=== PATIENT | female | born 1940 | race Caucasian/White ===

== ENCOUNTER → 2016-08-12 | Outpatient (CLI) | payer OTHER, MEDICARE ==
[~2016-08-12] MED LIST: ACET-1487 PO; ADVIN25050 INH; ALBUAER19 INH; ANT25 PO; ASPI81TA25 PO; CALC8.5C PO; COENCAP9; FLUT0.0529 NAE; GLGKIT; HYDR25TA4 PO; IBUP-1105 PO; INSPMPHMLG; LEVO112T2 PO; LOSA50TA6 PO; MULTTAB PO; OMEP20CA59 PO; VITA100C4 PO; [UNRECOGNIZED DRUG - OTHER] PO
[2016-08-12 13:53] LABS: ALT/SGPT 25 U/L (12-78); BLOOD UREA NITROGEN 18 mg/dl (7-18); BUN/CREATININE RATIO 21.2 (10-20); CALCIUM 8.8 mg/dl (8.5-10.1); CARBON DIOXIDE 30 mmol/L (21-32); CHLORIDE 103 mmol/L (98-107); CREATININE 0.84 mg/dl (0.60-1.20); GLUCOSE 289 mg/dl (70-99); POTASSIUM 3.8 mmol/L (3.5-5.1); SODIUM 140 mmol/L (136-145); TRIGLYCERIDES 128 mg/dl (0-150); VERY LOW DENSITY LIPOPROT CALC 26 mg/dl
[2016-08-12 13:54] LABS: ESTIMATED AVERAGE GLUCOSE 226 mg/dl; HA1C FLAG Normal (Normal)
[2016-08-12 14:03] LABS: ALB/GLOB RATIO 1.2 (0.9-2); ALKALINE PHOSPHATASE 114 U/L (45-117); AST/SGOT 17 U/L (15-37); CHOLESTEROL 163 mg/dl (0-200); CHOLESTEROL/HDL RATIO 3.3; HDL CHOLESTEROL 49 mg/dl; LDL CHOLESTEROL CALCULATED 88 mg/dl; THYROID STIMULATING HORMONE 0.025 uIu/ml (0.300-4.500)
--- NOTE | 2016-08-18 11:36 | CODING QUERY MEDICAL NECESSITY ---
SUPPORTING DIAGNOSIS NEEDED A supporting diagnosis is required for the test/procedure performed on this patient in order for us to be reimbursed by the patient's insurance. Please provide a supporting diagnosis for the following test/procedure listed below next to the test name along with your signature. *If there is no additional diagnosis for this patient that would support the following test/procedure please document that below next to the test/procedure. Test(s)/Procedure(s) that require a supporting diagnosis: DOS 08/12 * Hba1c DIAGNOSIS: Provider Signature: Date: Thank you Tati Ordonez Health Information Management Once completed, please kindly fax back to [phone] For questions please call [phone]
== END | disposition home or self-care (01) ==
LOC: C.LABMFLN 08:17
PROVIDERS: ATTEND Nurse Practitioner Adult Health
DX: G47.62 Sleep related leg cramps (principal); E78.5 Hyperlipidemia, unspecified; I10 Essential (primary) hypertension; R74.8 Abnormal levels of other serum enzymes; R53.83 Other fatigue; E10.65 Type 1 diabetes mellitus with hyperglycemia

== ENCOUNTER → 2016-11-28 | Outpatient (CLI) | payer OTHER, MEDICARE ==
[2016-11-28 17:48] LABS: THYROID STIMULATING HORMONE 0.111 uIu/ml (0.300-4.500)
[2016-11-29 06:46] LABS: ESTIMATED AVERAGE GLUCOSE 174 mg/dl; HA1C FLAG Normal (Normal)
== END | disposition home or self-care (01) ==
LOC: C.LAB1850 15:45
PROVIDERS: ATTEND Nurse Practitioner Adult Health
DX: E10.65 Type 1 diabetes mellitus with hyperglycemia (principal); E89.0 Postprocedural hypothyroidism; F32.9 Major depressive disorder, single episode, unspecified

== ENCOUNTER → 2017-02-27 | Outpatient (CLI) | payer OTHER, MEDICARE ==
[2017-02-27 13:38] LABS: ESTIMATED AVERAGE GLUCOSE 206 mg/dl; HA1C FLAG Normal (Normal)
[2017-02-27 13:44] LABS: THYROID STIMULATING HORMONE 0.667 uIu/ml (0.300-4.500)
[2017-02-27 13:55] LABS: RATIO 6.5 mcg/mg (0-30.0)
== END | disposition home or self-care (01) ==
LOC: C.LABMFLN 09:42
PROVIDERS: ATTEND Nurse Practitioner Adult Health
DX: E10.65 Type 1 diabetes mellitus with hyperglycemia (principal); E89.0 Postprocedural hypothyroidism; E05.00 Thyrotoxicosis with diffuse goiter without thyrotoxic crisis or storm; I10 Essential (primary) hypertension

== ENCOUNTER → 2017-05-15 | Outpatient (CLI) | payer OTHER, MEDICARE | END | disposition home or self-care (01) | LOC: C.LABMFLN 10:48 | PROVIDERS: ATTEND Internal Medicine Endocrinology, Diabetes & Metabolism | DX: E89.0 Postprocedural hypothyroidism (principal) ==

== ENCOUNTER → 2017-05-29 | Outpatient (CLI) | payer OTHER, MEDICARE ==
[2017-05-29 12:58] LABS: BASO % 0.1 %; BASO ABS # 0.01 K/uL (0-0.2); COMPLETE YES; EOS % 3.4 %; HEMATOCRIT 39.2 % (37-47); IG% 0.1 %; LYMPH % 27.8 %; LYMPH ABS # 2.15 K/uL (1.2-3.4); MEAN CELL VOLUME 93.1 fL (80-100); MEAN CORPUSCULAR HEMOGLOBIN 31.6 pg (25-34); MEAN CORPUSCULAR HGB CONC 33.9 g/dl (32-36); MEAN PLATELET VOLUME 10.4 fL (7.4-10.4); MONO % 8.9 %; NEUT % 59.7 %; PLATELET COUNT 238 K/uL (130-400); RED BLOOD COUNT 4.21 M/uL (4.2-5.4); WHITE BLOOD COUNT 7.72 K/uL (4.8-10.8)
[2017-05-29 13:26] LABS: ALT/SGPT 20 U/L (12-78); AST/SGOT 14 U/L (15-37); BLOOD UREA NITROGEN 12 mg/dl (7-18); BUN/CREATININE RATIO 16.5 (10-20); CARBON DIOXIDE 29 mmol/L (21-32); CHLORIDE 98 mmol/L (98-107); GLUCOSE 169 mg/dl (70-99); MAGNESIUM 1.8 mg/dl (1.8-2.4); POTASSIUM 3.6 mmol/L (3.5-5.1); SODIUM 134 mmol/L (136-145)
[2017-05-29 13:30] LABS: ALB/GLOB RATIO 1.1 (0.9-2); ALKALINE PHOSPHATASE 116 U/L (45-117); CHOLESTEROL 130 mg/dl (0-200); CHOLESTEROL/HDL RATIO 2.8; HDL CHOLESTEROL 47 mg/dl; LDL CHOLESTEROL CALCULATED 71 mg/dl; TRIGLYCERIDES 59 mg/dl (0-150); VERY LOW DENSITY LIPOPROT CALC 12 mg/dl
[2017-05-29 13:33] LABS: ESTIMATED AVERAGE GLUCOSE 189 mg/dl; HA1C FLAG Normal (Normal)
== END | disposition home or self-care (01) ==
LOC: C.LABMFLN 10:38
PROVIDERS: ATTEND Nurse Practitioner Adult Health
DX: I10 Essential (primary) hypertension (principal); M54.9 Dorsalgia, unspecified; R19.7 Diarrhea, unspecified; E10.9 Type 1 diabetes mellitus without complications; E78.5 Hyperlipidemia, unspecified; Z51.81 Encounter for therapeutic drug level monitoring; Z79.82 Long term (current) use of aspirin; Z79.899 Other long term (current) drug therapy; D64.9 Anemia, unspecified

== ENCOUNTER 2019-05-30 09:47 | Observation (INO) ==
[2019-05-30] MEDS ORDERED: ASPIRIN 325 MG ECTAB PO ONE (10:32)
--- NOTE | 2019-05-30 10:57 | History & Physical Bridge Note ---
Date of Service May 30, 2019 History & Physical Bridge Note I have examined the patient, reviewed the History & Physical and in the interval since the performance of the History & Physical I have noted the following changes of clinical significance: no changes noted
--- NOTE | 2019-05-30 10:58 | Pre Anesthesia Assessment ---
Date of Service May 30, 2019 Pre Sedation Assessment Vital Signs Temp Pulse Resp BP Pulse Ox 05/30/19 10:25 37.0 C 61 18 152/66 H 93 Cardiovascular + regular rate Respiratory normal respiratory effort, lungs clear to auscultation Pre-Sedation Airway Assessment Smoking Status: Never smoker Hx Sleep Apnea: No Short, Thick Neck: No Thyromental Distance: > or= 3.5 Finger Breadths Oral Cavity: + WNL Mallampati Class: III ASA: ASA3 NPO Status Date of Last Intake of Fluids: 05/29/19 Time of Last Intake of Fluids: 18:00 Date of Last Intake of Solid Food: 05/29/19 Time of Last Intake of Solid Foods: 18:00 Procedure Planning Contraindications for Sedation: none Current Medications Reviewed: Yes Notes The planned sedation has been discussed with the patient. Informed Consent was obtained. I have identified the patient, determined the appropriateness of sedation and have assessed the patient immediately prior to the procedure. All medicine(s) and interventions are by my order.
[2019-05-30] MEDS ORDERED: HEPARIN (PORCINE) 1000 UNIT/ML 10 ML (CATH LAB USE ONLY) ONE (13:28)
[2019-05-30] MEDS ORDERED: NiCARDipine HCL INJ 2.5 MG/ML 10 ML AMP ONE (13:28)
[2019-05-30] MEDS ORDERED: fentaNYL citrate 100 MCG/2 ML VIAL ONE (13:28)
[2019-05-30] MEDS ORDERED: NITROGLYCERIN/D5W 100MCG/ML 20ML SYR ONE (13:29)
[2019-05-30] MEDS ORDERED: MIDAZOLAM HCL 1 MG/ML 2ML VIAL ONE (13:29)
[2019-05-30] MEDS ORDERED: NITROGLYCERIN SL 0.4 MG/TAB TAB ONE (14:54)
[2019-05-30] MEDS ORDERED: FUROSEMIDE 40 MG in SYRINGE 0 ML IV ONE (16:06)
[2019-05-30] MEDS ORDERED: NITROGLYCERIN SL 0.4 MG/TAB TAB SL PRN (16:06)
[2019-05-30] MEDS ORDERED: ACETAMINOPHEN 325 MG TAB PO PRN ×2 (16:06→18:21)
[2019-05-30] MEDS ORDERED: ONDANSETRON INJ 2 MG/ML 2 ML VIAL IV PRN ×2 (16:06→18:21)
--- NOTE | 2019-05-30 16:16 | Cardiac Catheterization ---
[facility] Data: Surveillance Dual Rate Officer Cardiac Status Clinical evaluation leading to the procedure CAD Presenation: No Sxs, No angina Anginal Classification: No Symptoms Heart Failure: NYHA Class: CCS III Cardiogenic Shock within 24 Hours: No Cardiac Arrest within 24 Hours: No Imaging Studies Past 6 Months: Yes Stress Studies Past 6 Months: No Standard Exercise Test: No Stress Echocardiogram: No Stress Testing w/SPECT MPI: No Cardiac CTA: No Coronary Anatomy Dominant: Right Left Ventricular Angiography EF (%): n/a Diagnostic Physicians Name: Parmjit Sandoval MD Status: Elective Closure Device Percutaneous Entry Location: Radial Closure Device: Radial Band Recommendations: CABG Cardiac Cath Procedure Full Procedure Date May 30, 2019 Pre-Procedure Diagnosis Pre-Procedure Diagnosis: Cardiomyopathy AUC Score AUC Score: 7 Post-Procedure Diagnosis Post-Procedure Diagnosis: Severe CAD and Elevated Intracardiac Pressures Procedure(s) Performed Procedure(s) Performed: Coronary Angiography, Left Heart Cath and Right Heart Cath Design Engineer Products Parmjti Sandoval MD Rouge Presser(s) Margie Agrawal Estimated Blood Loss Estimated Blood Loss: < 30 ml Medication(s) Medication(s): Fentanyl, Heparin, Lidocaine 1%, Nicardipine, Nitroglycerin and Versed Summary of Findings Procedures: 1. Coronary angiography 2. Left heart catheterization 3. Right heart catheterization 4. Moderate sedation Coronary angiography: 1. Left main coronary artery: The LMCA is short in duration. No significant CAD within the LMCA. 2. Left anterior descending: LAD is a large-caliber vessel. Early mid LAD 100% stenosis. LAD gives rise to a large D1 and a large caliber D2. Proximal D2 90%. SHARON-3 flow throughout the diagonal. LAD partially fills via right to left collaterals. 3. Circumflex: The circumflex is a large-caliber vessel. Proximal circumflex 50 - 70%. Small caliber OM1. Large caliber OM 2 with 70 - 80% stenosis at bifurcation site. SHARON-3 flow throughout the circumflex system. 4. Right coronary: The RCA is large and dominant. Proximal RCA 30%. Mid RCA 40 - 50%. Distal RCA 50 - 60%. SHARON-[address] and PDA without significant CAD. Right to left collaterals were noted. Left heart catheterization: 1. Left ventriculography was not performed. 2. No aortic stenosis. Peak to peak gradient across the aortic valve is 0. 3. Elevated LVEDP; 22 mmHg. Right heart catheterization: 1. Elevated pulmonary capillary wedge pressure. PCWP V wave 40 with a mean of 20 mmHg. 2. Pulmonary hypertension. PA pressure 55/10 with a mean of 25 mmHg. 3. RV pressure 60/0 with RVEDP of 8 mmHg. 4. Right atrial pressure: A wave 10; V wave 9; mean 4 mmHg. 5. Cardiac output via thermodilution was 5.3 L/min with a cardiac index of 3.03 L/min/m. 6. PVR 0.94 Wood units. Moderate sedation: 1. Sedation start time 2:06 PM 2. Sedation end time 3:01 PM Procedural notes: 1. J-wire was unable to be passed beyond the right radial artery. Glidewire was successful. There was significant tortuosity within the right subclavian, however coronary angiography was able to be completed via the right radial artery with 5 Spanish JR4 and JL 3.5 diagnostic catheters. Impression: 1. Severe CAD including early mid LAD 100%, large D2, and large OM1. Right to left collaterals. 2. Moderate to severe CAD involving proximal circumflex and distal RCA. 3. Otherwise, nonobstructive disease. 4. Elevated filling pressures. 5. Pulmonary hypertension, likely due to left heart failure. 6. No aortic stenosis. Plan: 1. Referral to CT surgery at [facility] for discussion of possible revascularization. 2. Optimize medical therapy. 3. Loop diuretic. Hemodynamics Rest Ao:: 178/64 Final Ao: 168/71 LV: 180/12/22 Recommendations Recommendations: CABG Specimens Specimens: None Radiation Exposure (mGy) 1079 mGy. Fluoro time 17.4 min. Contrast (mls) 65 ml Procedural Complication(s) None Disposition Surveillance Dual Rate Officer Holding/Recovery I attest to the content of the Intraoperative Record and any orders documented therein. Any exceptions are noted below. Doist Card Cath Procedure Codes Cardiac Catheterization Procedure 1: Cardiovascular Cath Procedures: 53380 Coronaries & LHC (+/-LV) & RHC Moderate Sedation Procedure 1: Sedation/Anesthesia: 78368 Mod Sedation by the same physician;Init15 Min Child Age 5 & Up Procedure 2: Sedation/Anesthesia: 89445 Mod Sedation by the same physician; Ea [id number] Minutes Procedure 3: Sedation/Anesthesia: 66626 Mod Sedation by the same physician; Ea [id number] Minutes Procedure 4: Sedation/Anesthesia: 75341 Mod Sedation by the same physician; Ea [id number] Minutes PG Care Time/CCT Total # of Minutes Spent Total Time Spent with Patient: Total time spent is greater than 50% in coordination of care (as documented) at patient's floor/unit and/or counseling patient:
[2019-05-30] MEDS ORDERED: FUROSEMIDE 40 MG/4 ML VIAL IV ONE (16:33)
--- NOTE | 2019-05-30 17:13 | Post Anesthesia Assessment ---
Date of Service May 30, 2019 Post Sedation Assessment Vital Signs Temp Pulse Resp BP Pulse Ox 05/30/19 17:00 69 20 154/72 H 91 05/30/19 16:45 62 20 159/80 H 94 05/30/19 16:30 60 20 163/82 H 92 05/30/19 16:15 60 20 138/80 92 05/30/19 16:00 60 20 152/78 H 92 05/30/19 15:45 60 20 143/70 H 93 05/30/19 15:30 62 20 153/90 H 92 05/30/19 10:25 37.0 C 61 18 152/66 H 93 Recovery Score Activity: Moves 4 extremities Respiration: Deep Breath/Cough Circulation: +/-20% PreAnes Value Consciousness: Fully Awake Oxygen Saturation: > 92% On Room Air Post Anesthesia Score: 10 Discharge Sedation Level of Care: Fast Track Phase II Post Sedation Plan On clinical assessment, the patient appears to have tolerated the sedation without complications. Patient is recovering as anticipated. Patient will continue to be monitored by nursing and may be discharged when sedation discharge criteria are met per below protocol. Upon Completions of procedure up to 15 minutes continue every 5 minute vital signs and the P.A.R. score; then discharge to a Phase I or Fast Track to Phase II per the following guidelines: * Discharge Patient to appropriate Phase II area if PAR is 8 or greater or return to pre- procedure baseline. The post - procedure orders will be as directed. * If PAR score is less than 8 or not return to pre-procedure baseline then patient will follow Phase I monitoring till PAR is reached for Phase II. The Phase I may be done in procedure room or may call to secure a Phase I area. * If naloxone or flumazenil are used for reversal, hold in Phase I for continued monitoring from when last reversal dose was given for a minimum of 60 minutes or longer pending the nurse and/or physician discretion of patient condition before discharge to Phase II. Please call the Sedation Physician to re-evaluate and complete post-note for discharge to Phase II area. Do NOT discharge from procedure sedation or Phase 1 until post- sedation evaluation note is complete by procedure /sedation MD Sedation Discharge Instructions to be given to the patient at discharge to home.
--- NOTE | 2019-05-30 17:51 | Cardiology Progress Note ---
Date of Service May 30, 2019 Subjective Patient was given 40 mg of IV Lasix after filling pressures were noted to be elevated. Discharge paperwork has been completed. Lasix 40 mg once daily was prescribed. Nursing staff has since notified me that her oxygen saturation has been low with any type of exertion, such as using the restroom. I presented to the bedside. Her oxygen saturation in bed was 88-92%. She is not short of breath while in bed. Her oxygen saturation was in the mid 80s with exertion according nursing report. Her daughter was at the bedside and stated that 1 year ago they checked her oxygen saturations at home and her mother's was low at that time as well. She likely has some degree of chronic hypoxia as she is not symptomatic while in bed. Given the fact that she is desaturating however with exertion and short of breath with exertion just walking across the room, recomm end that she remain hospitalized overnight and possibly receive more intravenous diuretic therapy in the morning if appropriate at that time. This was discussed with admitting physician for the hospitalist service, Dr. Delvalle. He was agreeable to admit her to the hospitalist service for further evaluation. Patient was agreeable to stay. Her daughter was at the bedside. Results & Data Vital Signs (Past 12 Hours) Vital Signs Temp Pulse Resp BP Pulse Ox 05/30/19 17:30 59 L 20 146/62 H 92 05/30/19 17:15 72 20 185/92 H 91 05/30/19 17:00 69 20 154/72 H 91 05/30/19 16:45 62 20 159/80 H 94 05/30/19 16:30 60 20 163/82 H 92 05/30/19 16:15 60 20 138/80 92 05/30/19 16:00 60 20 152/78 H 92 05/30/19 15:45 60 20 143/70 H 93 05/30/19 15:30 62 20 153/90 H 92 05/30/19 10:25 37.0 C 61 18 152/66 H 93 PG Care Time/CCT Total # of Minutes Spent Total Time Spent with Patient: Total time spent is greater than 50% in coordination of care (as documented) at patient's floor/unit and/or counseling patient:
[2019-05-30] MEDS ORDERED: ALBUTEROL HFA 8 GM INHALER INH PRN (18:36)
--- NOTE | 2019-05-30 20:24 | History & Physical Report ---
Date of Service May 30, 2019 Assessment & Plan (1) Uncontrolled type 1 diabetes mellitus, with long-term current use of insulin: 79 year old woman with a past medical history of severe CAD here post cath for acute hypoxemic respiratory failure Acute Hypoxemic Respiratory Failure Likely secondary to CHF exacerbation and fluid overload vs. reactive airway component from patient's asthma Rales on physical exam and moving good air without wheeze Will get urgent CXR, CBC, BMP, BNP Echo performed recently and right heart cath showing pulmonary hypertension likely secondary to Left heart failure Will continue to diurese and adjust course based on BMP and CXR Gave 40 mg Lasix IV tonight will give 40 more in morning Duonebs ordered PRN SOB or wheezing Will get 2 step to see if patient may need to be discharged on home O2 Multivessel CAD Catheterization performed tonight, showing severe multi vessel disease No stents placed Will need to meet with cardiothoracic surgeon to discuss bypass options Hemodynamically Stable, no acute symptoms DMI Patient with own insulin pump, will allow her to continue using this Asthma No acute SOB or wheeze Duonebs and home leukotriene continued Hypothyroidism s/p Graves and Ablation [place] Thyroid 105 mg daily HTN Continuing home losartan, beta walt, lasix HLD Continuing atorvastatin would likely benefit from an increase in dosage as patient is now thought to be post VA for secondary prevention Depression Continue home sertraline GERD Replacing home omeprazole with Protonix PO F/E/N: Heart Healthy Type I diabetic diet DVT PPx: Lovenox Dispo: Admit to med tele now, hope to discharge tomorrow home pending resolution of hypoxemic respiratory failure with diuresis or home with home O2 Code status: full code (2) Cardiomyopathy: (3) Anterior myocardial infarction: (4) Dyspnea on exertion: (5) Presence of insulin pump: (6) Obesity (BMI 30.0-34.9): (7) Moderate nonproliferative diabetic retinopathy: (8) Mitral valve insufficiency and aortic valve insufficiency: (9) Hypothyroidism, postablative: (10) Hypertension: (11) GERD without esophagitis: (12) Dyslipidemia: (13) Depression with anxiety: (14) Asthma: (15) Acute on chronic respiratory failure with hypoxemia: History of Present Illness Chief Complaint: Hypoxia Primary Care Provider: DO Namita Salgueroniels Olson is a 79 year old woman with a past medical history significant for Multivessel CAD (early mid LAD 100%, Moderate to severe CAD involving proximal circumflex and distal RCA),Type 1 diabetes (With insulin pump), Dyslipidemia, asthma (albuterol inhaler, home duonebs, montelukast), Graves disease (s/p ablation on 105 mg [place]), HTN (On home losartan 100 mg, metoprolol 25 mg), HLD (On home atorvastatin 20 mg). She is here at [facility] for an outpatient catheterization which was scheduled after seeing cardiology for exertional dyspnea while on vacation in [place]. She had an echocardiogram done at that time which showed an EF of 45 % and large areas of hypokinesis in the mid anteroseptum, mid anterolateral, mid inferoseptal, and and distal anterior wall segments. Severe hypokinesis/akinesis of apex. Catheterization showed severe multi vessel disease, no stents placed and outpatient follow up with surgery for discussion of bypass. Post op patient was in her usual state of health, but found to be hypoxemic between 88-92%. Evidence of fluid overload and elevated filing pressures and patient was given 40 mg IV lasix. She denies any SOB, any difficulty breathing, any chest pain, pressure or tightness, or any other troubling symptom and tells me she has had this issue in the past with low oxygenation numbers. She is not and has never been on home oxygen. At time of my exam she is resting comfortably on 2 L of O2 and reports only that she has been urinating very frequently. Otherwise ROS negative and patient comfortable. it is her birthday today and she is near the anniversary of losing both her and father last year. She thinks she may have suffered her heart attack in the period between their deaths when she felt very ill but never sought medical treatment. Daughter present at bedside as well. Allergies Allergy/AdvReac Type Severity Reaction Status Date / Time amoxicillin Allergy Verified 05/14/19 09:29 fluconazole Allergy Verified 05/14/19 09:29 Sulfa (Sulfonamide Allergy Verified 05/14/19 09:29 Antibiotics) Home Medications Home Medications Medication Instructions Recorded Confirmed Type Saccharomyces boulardii 250 mg 250 mg PO DAILY cap 01/04/19 05/14/19 History capsule albuterol sulfate 90 mcg/actuation 2 puffs INHALATION Q4H PRN #1 gm 01/04/19 05/14/19 History aerosol inhaler aspirin 81 mg tablet 81 mg PO DAILY tab 01/04/19 05/14/19 History blood sugar diagnostic #10 ea 01/04/19 05/14/19 History calcium-vitamin D3-vitamin K 500 1 tab PO DAILY tab 01/04/19 05/14/19 History mg-500 unit-40 mcg chewable tablet cholecalciferol (vitamin D3) 25 1,000 units PO DAILY #1 cap 01/04/19 05/14/19 History mcg (1,000 unit) capsule ipratropium-albuterol 0.5 mg-3 3 ml INHALATION Q4H PRN #2 ml 01/04/19 05/14/19 History mg(2.5 mg base)/3 mL nebulization soln ketorolac 0.4 % eye drops 1 drops OP .COMPLEX ml 01/04/19 05/14/19 History mxrczpbn-awl-sejsr acid 0.4 1 tab PO DAILY 01/04/19 05/14/19 History mg-lycopene 300 mcg-lutein 250 mcg tablet omeprazole magnesium 20 mg 20 mg PO DAILY tab 01/04/19 05/14/19 History tablet,delayed release sertraline 100 mg tablet 100 mg PO DAILY #30 tab 01/04/19 05/14/19 History timolol maleate 0.25 % eye drops 1 drops OP BID ml 01/04/19 05/14/19 History vitamins A,C,X-lwks-owwztf 14,320 1 cap PO DAILY cap 01/04/19 05/14/19 History unit-226 mg-200 unit capsule leflunomide 10 mg tablet 10 mg PO DAILY #90 tab 01/14/19 05/14/19 Rx triamcinolone acetonide 0.1 % 1 appln TOP BID #15 gm 01/14/19 04/15/19 Rx topical cream blood sugar diagnostic #10 ea 01/15/19 05/14/19 Rx glucagon HCl 1 mg solution for 1 mg IM .COMPLEX ea 01/15/19 05/14/19 History injection insulin lispro 100) 100 unit/mL 50 units SQ .COMPLEX #3 ml 01/15/19 05/14/19 Rx subcutaneous solution insulin syringe,safetyneedle 0.5 #100 ea 01/15/19 04/15/19 Rx mL 31 gauge x 15/64" thyroid (pork) 15 mg tablet 15 mg PO DAILY #30 tab 01/15/19 05/14/19 Rx montelukast 10 mg tablet 10 mg PO DAILY #30 tab 02/12/19 05/14/19 Rx losartan 100 mg tablet 100 mg PO DAILY #90 tab 03/06/19 05/14/19 Rx thyroid (pork) 90 mg tablet 90 mg PO DAILY #30 tab 03/18/19 05/14/19 Rx atorvastatin 20 mg tablet 20 mg PO DAILY #90 tab 05/14/19 05/14/19 Rx metoprolol succinate 25 mg 25 mg PO DAILY #90 tab 05/14/19 05/14/19 Rx tablet,extended release 24 hr furosemide [Lasix] 40 mg PO DAILY #30 tab 05/30/19 Rx Past Med/Surg History Social History Preferred Language: Indian Communication Ability: Effective Hearing Ability: Normal Electrotype Finisher Required: No Beliefs That Will Affect Care: None Current Living Situation: Alone Other Information That Helps Us Care for You: No Feels Safe at Home: Yes Safety Concerns: Feels Safe At This Time Smoking Status: Never smoker Do You Dip or Chew Tobacco: No ; Second Hand Exposure: Yes ; Tobacco Cessation Education Requested by Patient: No Hx Alcohol Use: Yes Alcohol type: wine Hx Substance Use: No Review of Systems Constitutional: no fever, no chills, no fatigue and no weakness Eyes: no problem reported Ear, Nose, Mouth, Throat: no problem reported Respiratory: no cough, no dyspnea and no wheezing Cardiovascular: + edema (Mild); no chest pain, no dyspnea, no palpitations, no lightheadedness and no syncope Gastrointestinal: no abdominal pain, no nausea and no vomiting Physical Exam Constitutional: well developed, well nourished and + obese; no acute distress Eyes: PERRL, conjunctivae normal, anicteric sclerae Respiratory: normal respiratory effort; no respiratory distress, no labored breathing and does not use accessory muscles Auscultation: + rales (Bilateral) Cardiovascular: RRR, no murmur, no edema Gastrointestinal (Abdomen): normal bowel sounds, soft, nontender, no hepatosplenomegaly Skin: no rashes, warm and dry Results & Data Vital Signs (Past 12 Hours) Vital Signs Temp Pulse Resp BP Pulse Ox 05/30/19 19:48 36.8 C 60 18 146/65 H 94 05/30/19 18:22 37.1 C 53 L 16 160/75 H 94 05/30/19 18:15 61 18 163/72 H 96 05/30/19 18:00 60 24 167/67 H 96 05/30/19 17:45 62 20 160/64 H 94 05/30/19 17:30 59 L 20 146/62 H 92 05/30/19 17:15 72 20 185/92 H 91 05/30/19 17:00 69 20 154/72 H 91 05/30/19 16:45 62 20 159/80 H 94 05/30/19 16:30 60 20 163/82 H 92 05/30/19 16:15 60 20 138/80 92 05/30/19 16:00 60 20 152/78 H 92 05/30/19 15:45 60 20 143/70 H 93 05/30/19 15:30 62 20 153/90 H 92 05/30/19 10:25 37.0 C 61 18 152/66 H 93 Code Status & VTE Plan VTE Prophylaxis Plan VTE Prophylaxis will be ordered: Yes Supervising Physician Co-Signing Physician Notes I personally interviewed and examined the patient. I agree with history of present illness and physical exam mentioned above, I also performed my own history taking and examination. Past medical history and review of system has been obtained by myself I reviewed all pertinent labs and studies Reviewed current medications I discussed and formulated of the assessment and plan mentioned above. Please refer to the Summary mentioned below. 79-year-old female with past medical history severe CAD including severe LAD disease and proximal circumflex and distal RCA, diabetes mellitus type 1, dyslipidemia, asthma, hypothyroidism/Graves' disease status post thyroid ablation, essential hypertension, arthritis, dyslipidemia and obesity, patient had an elective cardiac catheterization today that revealed ejection fraction 45%, coronary disease as mentioned above, postprocedure patient was supposed to be referred to cardiothoracic surgery as an outpatient, unfortunately she had a significant drop in her oxygen, especially on exertion her O2 sat drops to 83% despite of 40 mg of Lasix that were giving to her by Dr. Sandoval immediately after the procedure. Patient will be admitted for acute on chronic systolic congestive heart failure, started on IV diuresis, input/output, daily weight, further recommendation will follow. General Appearance: not in acute distress Eyes: normal Sclerae, extraocular muscle intact ENT: hearing grossly normal Neck: supple Respiratory/Chest: Decreased air entry bilaterally, basilar Rales bilateral ,no respiratory distress, no accessory muscle use Cardiovascular: regular rate, rhythm, no murmur Abdomen: non tender, soft, no masses Extremities: no edema musculoskeletal: no significant swelling or inflammation in any joint Neurologic/Psychiatric: Awake alert oriented times place and person moves all extremities sensation intact cranial nerves II-12 appear to be intact Skin: normal color, warm/dry, no rash Vishnu Delvalle MD, [facility] Resident Activity Tracking Resident Involvement: Resident Care Provided Care Provided: Adult Hospital Medicine
[2019-05-30] MEDS: TIMOLOL MALEATE 0.25% OP SOLN 5 ML BTL OPR SCH (20:42)
[2019-05-30] MEDS ORDERED: MONTELUKAST SODIUM 10 MG TABLET PO SCH (21:00)
--- NOTE | 2019-05-30 23:34 | Billing Data ---
Date of Service May 30, 2019 Coding Level of Care Code 46102 Initial Inpt Care Lvl 3
[2019-05-31] MEDS ORDERED: CARBOHYDRATES FOR HYPOGLYCEMIA PO PRN (05:22)
[2019-05-31] MEDS: TIMOLOL MALEATE 0.25% OP SOLN 5 ML BTL OPR SCH (07:52)
[2019-05-31 08:04] LABS: Eosinophils # (auto) 0.35 K/uL (0-0.5); Eosinophils % (auto) 5.8 %; Hematocrit (blood only) 41.6 % (37-47); Hemoglobin 13.6 g/dL (12.0-16.0); Immature Granulocytes # (auto) 0.01 K/uL (0.00-0.02); Immature Granulocytes % (auto) 0.2 %; Lymphocytes # (auto) 1.88 K/uL (1.2-3.4); Lymphocytes % (auto) 30.9 %; Mean Corpuscular Hemoglobin 29.5 pg (25-34); Mean Corpuscular Hgb Conc 32.7 g/dL (32-36); Mean Corpuscular Volume 90.2 fL (80-100); Mean Platelet Volume 11.4 fL (7.4-10.4); Monocytes # (auto) 0.54 K/uL (0.11-0.59); Monocytes % (auto) 8.9 %; Neutrophils % (auto) 54.2 %; Platelet Count 181 K/uL (130-400); RDW Coefficient of Variation 13.1 % (11.5-14.5); RDW Standard Deviation 42.9 fL (36.4-46.3); Red Blood Count 4.61 M/uL (4.2-5.4); White Blood Count 6.08 K/uL (4.8-10.8)
[2019-05-31 08:18] LABS: INR 1.1 (0.9-1.1); Prothrombin Time 11.4 Seconds (9.0-12.0)
--- NOTE | 2019-05-31 08:27 | Cardiology Progress Note ---
Date of Service May 31, 2019 Assessment & Plan (1) Chronic diastolic CHF (congestive heart failure): (2) Acute on chronic respiratory failure with hypoxemia: (3) Dyslipidemia: (4) Hypertension: (5) Cardiomyopathy: (6) CAD (coronary artery disease): (7) Pulmonary hypertension: ASSESSMENT/PLAN: 1. Chronic diastolic CHF: Filling pressures elevated yesterday during cardiac catheterization. She has been having issues with shortness of breath for some time so this is likely a chronic process. She feels much better today. She can likely be discharged later today if she is able to ambulate in hallway without significant hypoxia. Would recommend 40 mg of Lasix on discharge. This has already been sent to her pharmacy. We discussed importance of a low-sodium diet. Less than 2000 mg of sodium per day. Check daily weights, this was also discussed with her. Office is arranging follow-up for this upcoming Monday in [place]. HCTZ has been discontinued and would not discharge home on this medication now that she will be on Lasix. Basic metabolic panel on Monday. 2. Acute on chronic respiratory failure with hypoxia: She is much better symptomatically this morning. Continue diuresis. Most likely due to heart failure but also has underlying asthma. 3. CAD: She has multivessel CAD including occluded LAD. No angina. Continue aspirin 81 mg daily. She has had issues with myalgias in the past on statins. She was recently started on atorvastatin 20 mg daily. If she tolerates this well going forward, would recommend increasing for high-intensity statin therapy. Continue low-dose beta-walt as tolerated. If this does not exacerbate her asthma, this can be further titrated as well. Recommend CT surgery evaluation. [place] [facility] [place] cath and echo have [place] [facility] [place]. Recommend nitroglycerin on discharge to be used on an as-needed basis. 4. Cardiomyopathy: Mildly reduced LV systolic function, consistent with occluded LAD. Continue medical therapy. 5. Pulmonary hypertension: Likely due to left heart failure. Diuresis as above. 6. Hypertension: Currently normotensive but has been hypertensive. Hopefully this continues to improve with diuresis. 7. Dyslipidemia: As above, she has been intolerant to statin therapy in the past but she is currently tolerating atorvastatin 20 mg. This can be titrated in the future if she continues to tolerate it well given her CAD. 8. Disposition: If she feels well later today without hypoxia, can be discharged home from a cardiology standpoint. Follow-up is being arranged to the cardiology office. Subjective She feels much better this morning. She was able to ambulate across her room to the restroom without shortness of breath. She has not yet ambulated in the hallway. She denies orthopnea, chest pain, syncope, near-syncope, palpitations, or edema. She denies bleeding. She has not had any issues with her right radial cath site or venous access site. She denies bleeding in those areas. She is hoping to go home today. There was no family at the bedside this morning when evaluated. Review of systems: As above. Physical Exam Physical Exam: Gen.: No acute distress. Alert and oriented. HEENT: Anicteric sclera. Neck: No appreciable JVD. No hepatic jugular reflux noted. Cardiac: Regular. Normal S1-S2. No murmurs, rubs, or gallops. Pulmonary: Clear to auscultation bilaterally without wheezes, rales, or rhonchi. Abdomen: Soft, nontender, nondistended, with normoactive bowel sounds. No bruits noted. Extremities: No significant edema or cyanosis. Right radial cath site is clean, dry, and intact without erythema or discharge. Right brachiocephalic venous access site is clean, dry, and intact without erythema or discharge. No hematomas. Psychiatric: Affect appears appropriate. Results & Data Vital Signs (Past 12 Hours) Vital Signs Temp Pulse Resp BP Pulse Ox 05/31/19 07:31 36.4 C L 65 20 123/67 95 05/31/19 03:30 36.5 C 64 18 123/66 93 05/31/19 00:03 36.8 C 19 145/80 H 95 Laboratory Results Laboratory Results - last 24 hr 05/30/19 05/30/19 05/30/19 20:37 20:38 23:42 WBC RBC Hgb Hct MCV MCH MCHC RDW Std Deviation RDW Coeff of Adrián Plt Count MPV Immature Gran % (Auto) Neut % (Auto) Lymph % (Auto) [place] % (Auto) Eos % (Auto) Baso % (Auto) Immature Gran # (Auto) Neut # (Auto) Lymph # (Auto) [place] # (Auto) Eos # (Auto) Baso # (Auto) PT INR Sodium Potassium Chloride Carbon Dioxide Anion Gap BUN Creatinine Est Cr Clr Drug Dosing Est GFR ( Amer) Est GFR (Non-Af Amer) BUN/Creatinine Ratio Glucose POC Glucose 80 83 66 L* Calcium 05/31/19 05/31/19 05/31/19 00:01 03:28 07:31 WBC RBC Hgb Hct MCV MCH MCHC RDW Std Deviation RDW Coeff of Adrián Plt Count MPV Immature Gran % (Auto) Neut % (Auto) Lymph % (Auto) [place] % (Auto) Eos % (Auto) Baso % (Auto) Immature Gran # (Auto) Neut # (Auto) Lymph # (Auto) [place] # (Auto) Eos # (Auto) Baso # (Auto) PT INR Sodium Potassium Chloride Carbon Dioxide Anion Gap BUN Creatinine Est Cr Clr Drug Dosing Est GFR ( Amer) Est GFR (Non-Af Amer) BUN/Creatinine Ratio Glucose POC Glucose 76 160 H 177 H Calcium 05/31/19 05/31/19 05/31/19 07:36 07:36 07:43 WBC 6.08 RBC 4.61 Hgb 13.6 Hct 41.6 MCV 90.2 MCH 29.5 MCHC 32.7 RDW Std Deviation 42.9 RDW Coeff of Adrián 13.1 Plt Count 181 MPV 11.4 H Immature Gran % (Auto) 0.2 Neut % (Auto) 54.2 Lymph % (Auto) 30.9 [place] % (Auto) 8.9 Eos % (Auto) 5.8 Baso % (Auto) 0.0 Immature Gran # (Auto) 0.01 Neut # (Auto) 3.30 Lymph # (Auto) 1.88 [place] # (Auto) 0.54 Eos # (Auto) 0.35 Baso # (Auto) 0.00 PT 11.4 INR 1.1 Sodium Pending Potassium Pending Chloride Pending Carbon Dioxide Pending Anion Gap Pending BUN Pending Creatinine Pending Est Cr Clr Drug Dosing Pending Est GFR ( Amer) Pending Est GFR (Non-Af Amer) Pending BUN/Creatinine Ratio Pending Glucose Pending POC Glucose Calcium Pending Diagnostic Findings Telemetry personally reviewed: Sinus rhythm. No arrhythmia. Medications Administered Current Inpatient Medications Acetaminophen (Tylenol) 650 mg PO Q4H PRN PRN Reason: Pain or Fever Stop: 06/29/19 18:20 Albuterol (Ventolin Hfa) 2 puffs INH Q4H PRN PRN Reason: Shortness Of Breath Or Wheezing Stop: 06/29/19 18:44 Aspirin (Ecotrin Ectab) 81 mg PO [facility] Stop: 06/30/19 08:59 Last Admin: 05/31/19 08:38 Dose: 81 mg Documented by: Atorvastatin Calcium (Lipitor) 20 mg PO [facility] Stop: 06/30/19 08:59 Last Admin: 05/31/19 08:38 Dose: 20 mg Documented by: Enoxaparin Sodium (Lovenox) 40 mg SQ [facility] Stop: 06/30/19 08:59 Last Admin: 05/31/19 07:51 Dose: 40 mg Documented by: Furosemide 40 mg/ Syringe 4 mls @ 4 mls/min IV [facility] Stop: 06/30/19 08:59 Last Admin: 05/31/19 07:50 Dose: 4 mls/min Documented by: Losartan Potassium (Cozaar) 100 mg PO [facility] Stop: 06/30/19 08:59 Last Admin: 05/31/19 08:38 Dose: 100 mg Documented by: Metoprolol Succinate (Toprol Xl) 25 mg PO [facility] Stop: 06/30/19 08:59 Last Admin: 05/31/19 08:38 Dose: 25 mg Documented by: Miscellaneous (Carbohydrates For Hypoglycemia) 15 gm PO ONCE PRN PRN Reason: Hypoglycemia Treatment Stop: 06/30/19 05:21 Last Admin: 05/30/19 23:43 Dose: 15 gm Documented by: Montelukast Sodium (Singulair) 10 mg PO [facility] Stop: 06/29/19 20:59 Last Admin: 05/30/19 20:42 Dose: 10 mg Documented by: Multivitamins (Multivitamin Tab) 1 tab PO [facility] Stop: 06/30/19 08:59 Last Admin: 05/31/19 08:38 Dose: 1 tab Documented by: Nitroglycerin (Nitrostat) 0.4 mg SL Q5M PRN PRN Reason: Chest Pain X 3 DOSES Stop: 06/29/19 16:05 Ondansetron HCl (Zofran) 4 mg IV Q6H PRN PRN Reason: Nausea Stop: 06/29/19 18:20 Pantoprazole Sodium (Protonix) 40 mg PO [facility] Stop: 06/30/19 08:59 Last Admin: 05/31/19 08:38 Dose: 40 mg Documented by: Sertraline HCl (Zoloft) 100 [facility] Stop: 06/30/19 08:59 Last Admin: 05/31/19 08:38 Dose: 100 mg Documented by: Thyroid ([place] Thyroid) 105 mg PO [facility] Stop: 06/30/19 08:59 Last Admin: 05/31/19 07:47 Dose: 105 mg Documented by: Timolol Maleate (Timoptic 0.25% Oph) 1 drops OPR BID [facility] Stop: 06/29/19 20:59 Last Admin: 05/31/19 07:52 Dose: 1 drops Documented by: PG Care Time/CCT Total # of Minutes Spent Total Time Spent with Patient: Total time spent is greater than 50% in coordination of care (as documented) at patient's floor/unit and/or counseling patient:
[2019-05-31 08:41] LABS: BUN Creatinine Ratio 23.1 (10-20); Calcium 9.3 mg/dl (8.5-10.1); Creatinine Clr Calc Pharmacy 48.9 ml/min; Est GFR (Non-African American) 64.7; Potassium 3.3 mmol/L (3.5-5.1)
[2019-05-31] MEDS ORDERED: PANTOprazole 40 MG TAB PO SCH (09:00)
[2019-05-31] MEDS ORDERED: LOSARTAN POTASSIUM 50 MG TAB PO SCH (09:00)
[2019-05-31] MEDS ORDERED: ARMOUR THYROID 30 MG TAB PO SCH ×2 (09:00)
[2019-05-31] MEDS ORDERED: METOPROLOL SUCC 25MG EXT REL TAB PO SCH (09:00)
[2019-05-31] MEDS ORDERED: MULTIVITAMIN TAB PO SCH (09:00)
[2019-05-31] MEDS ORDERED: ATORVASTATIN 20 MG TAB PO SCH (09:00)
[2019-05-31] MEDS ORDERED: SERTRALINE HCL 100 MG TABLET PO SCH (09:00)
[2019-05-31] MEDS ORDERED: ENOXAPARIN INJ 40 MG/0.4 ML SYR SQ SCH (09:00)
[2019-05-31] MEDS ORDERED: FUROSEMIDE 40 MG in SYRINGE 0 ML IV SCH (09:00)
[2019-05-31] MEDS ORDERED: ASPIRIN 81 MG ECTAB PO SCH (09:00)
[2019-05-31] MEDS ORDERED: hydroCHLOROthiazide 25 MG TAB PO SCH (09:00)
[2019-05-31] MEDS ORDERED: POTASSIUM CHLORIDE 20 MEQ TABCR PO STA (15:11)
[2019-06-03 07:46] LABS: iSTAT Arterial Blood Gas HCO3 27 meg/L (19-24); iSTAT Arterial Blood Gas pCO2 41 mmHg (35-46); iSTAT Arterial Blood Gas pH 7.43 (7.35-7.45); iSTAT Arterial Blood Gas pO2 36 mmHg (80-95); iSTAT Carbon Dioxide 29 mEq/l (24-31)
--- NOTE | 2019-06-04 16:30 | Discharge Summary ---
Date of Service May 31, 2019 Admission HPI Per Admitting Provider Isadora Olson is a 79 year old woman with a past medical history significant for Multivessel CAD (early mid LAD 100%, Moderate to severe CAD involving proximal circumflex and distal RCA),Type 1 diabetes (With insulin pump), Dyslipidemia, asthma (albuterol inhaler, home duonebs, montelukast), Graves disease (s/p ablation on 105 mg [place]), HTN (On home losartan 100 mg, metoprolol 25 mg), HLD (On home atorvastatin 20 mg). She is here at [facility] for an outpatient catheterization which was scheduled after seeing cardiology for exertional dyspnea while on vacation in [place]. She had an echocardiogram done at that ti or which showed an EF of 45 % and large areas of hypokinesis in the mid anteroseptum, mid anterolateral, mid inferoseptal, and and distal anterior wall segments. Severe hypokinesis/akinesis of apex. Catheterization showed severe multi vessel disease, no stents placed and outpatient follow up with surgery for discussion of bypass. Post op patient was in her usual state of health, but found to be hypoxemic between 88-92%. Evidence of fluid overload and elevated filing pressures and patient was given 40 mg IV lasix. She denies any SOB, any difficulty breathing, any chest pain, pressure or tightness, or any other troubling symptom and tells me she has had this issue in the past with low oxygenation numbers. She is not and has never been on home oxygen. At time of my exam she is resting comfortably on 2 L of O2 and reports only that she has been urinating very frequently. Otherwise ROS negative and patient comfortable. it is her birthday today and she is near the anniversary of losing both her and father last year. She thinks she may have suffered her heart attack in the period between their deaths when she felt very ill but never sought medical treatment. Daughter present at bedside as well. Admission Exam Per Admitting Provider Constitutional: well developed, well nourished and + obese; no acute distress Eyes: PERRL, conjunctivae normal, anicteric sclerae Respiratory: normal respiratory effort; no respiratory distress, no labored breathing and does not use accessory muscles Auscultation: + rales (Bilateral) Cardiovascular: RRR, no murmur, no edema Gastrointestinal (Abdomen): normal bowel sounds, soft, nontender, no hepatosplenomegaly Skin: no rashes, warm and dry Principal Diagnosis Coronary artery disease Diastolic heart failure Pulmonary hypertension Hypokalemia (low potassium) Discharge Exam Constitutional well developed and well nourished; no acute distress Eyes PERRL, conjunctivae normal, anicteric sclerae ENMT Mallampati Class: III Neck trachea midline Respiratory normal respiratory effort; no respiratory distress, no labored breathing and does not use accessory muscles Auscultation: lungs clear to auscultation bilaterally and + diminished lung sounds (bibasal); no crackles, no rales, no rhonchi and no wheezes Cardiovascular RRR, no murmur, no edema Gastrointestinal (Abdomen) normal bowel sounds, soft, nontender, no hepatosplenomegaly Skin no rashes, warm and dry Psychiatric A+Ox3, euthymic affect Discharge Data Allergies Allergy/AdvReac Type Severity Reaction Status Date / Time amoxicillin Allergy Verified 06/04/19 13:22 fluconazole Allergy Verified 06/04/19 13:22 Sulfa (Sulfonamide Allergy Verified 06/04/19 13:22 Antibiotics) Consultations 05/30/19 18:21 Consult Cardiology Routine Procedures Performed Operation Date: 05/30/19 11:00 Actual Procedures p Cath, Right and Left Heart - Parmjit Sandoval MD s Cineradiography w/Routine Exam - Parmjit Sandoval MD Ordered Studies 05/30/19 06:42 CL Cath Imgs for PACS use only Routine Hospital Course (1) Chronic diastolic CHF (congestive heart failure): Isadora Olson is a 79 year old female observed overnight at [facility] from May 30 to 2018 due to low oxygen levels after elective outpatient cardiac catheterization. She was diagnosed with chronic diastolic congestive heart failure and pulmonary hypertension. This was treated with intravenous diuretics (Lasix) and she improved overnight. She passed the 6-minute walk test therefore no oxygen required at home. She was seen by Dr Jacquie santos (cardiology) and advised to continue on Lasix 40 mg daily and potassium supplementation. She will discontinue HCTZ. During her outpatient cardiac catheterization she was diagnosed with severe coronary artery disease with plan to optimize medical therapy and referral for cardiothoracic surgery at [facility] for discussion of possible revascularization. She will follow up with her dixonac operator for further discussions regarding this. 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, postablative: (11) Hypertension: (12) GERD without esophagitis: (13) Dyslipidemia: (14) Depression with anxiety: (15) Asthma: (16) Acute on chronic respiratory failure with hypoxemia: Total Time Total Time Spent Total Time Spent (In Minutes): 55 Total Time Includes: Examination of the Patient, Discharge Planning, Medication Reconciliation and Communication With Other Providers Discharge Plan Discharge Items Patient Disposition: Home - Self-Care Reason For Visit: CHRONIC DIASTOLIC CHF AND SEVERE CAD Discharge Diagnosis: Coronary artery disease Diastolic heart failure Pulmonary hypertension Hypokalemia (low potassium) Activity: Per Instructions section Non-emergency contact: Program Coordinator [employer] Education Call non-emergency contact if: you have any medication questions, your symptoms worsen, you have a fever, your wound has increased redness and your wound pain has increased Follow-up/Referrals: Parmjit Sandoval MD [Physician] - Deandre Cross DO [Primary Care Provider] - 06/05/19 11:00 am (Please, follow up with Dr. Deandre Cross on MondayJune 05 at 11:00 am. *If you need to change this appointment, call the office at [phone].) Diet: Heart Healthy and Low Sodium (2gm) Ambulatory Orders: Basic Metabolic Panel (Routine) Timeframe: 1 Week Location: Determined by Patient Ordered By: Silver Sanches Attending Provider Instructions: ACTIVITY RECOMMENDATIONS AFTER CARDIAC CATHETERIZATION: Excess manipulation of the wrist should be avoided for the next 24-48 hours. * No lifting over 2 pounds (approximately a 1/2 gallon of milk) with the utilized arm for 24 hours. * No strenuous activity such as bowling or tennis for 3 days. * Keep the site of the procedure covered with a bandage for 24 hours. *You may shower the day after the procedure. Do not take a tub bath or submerge the puncture site in water for the next 3 days. *Do not operate any motorized equipment for 3 days. SPECIAL CARE INSTRUCTIONS: The site may be slightly bruised and sore following your procedure. Should any of the following occur, contact the Dr. who performed your procedure. 1. Redness/inflammation, swelling, chills, or fever, or colored drainage at procedure site within 3-7 days after your procedure. 2. Coldness, discoloration, ongoing numbness, severe pain, or swelling. Expect mild tingling of hand and tenderness at the puncture site for up to three days. If this persists beyond three days, or other symptoms develop, notify the Dr. who performed your procedure. BLEEDING: If the procedure site on your wrist begins to bleed, do not panic 1. Place 1 or 2 fingers firmly just slightly above the insertion site to stop the bleeding. You may be able to feel your pulse as you hold pressure. 2. Lift your finger after 5 minutes to see if the bleeding has stopped. 3. Once the bleeding has stopped, gently wipe the wrist area clean with a bandage. * If the bleeding from your wrist does not stop after 10 minutes, or if there is a large amount of bleeding or spurting, call 911 (do not drive yourself to the hospital). SKIN IRRITATION: * You may experience some redness and/or swelling in the area where radiation was administered. If any skin irritation occurs, please contact your family physician. FOLLOW UP VISIT: Keep any scheduled doctor appointments. Addtl Assembly Line Machine Operator Provider Instructions: You were observed overnight at [facility] from May 30 to 2018 due to low oxygen levels after elective outpatient cardiac catheterization. You were diagnosed with chronic diastolic congestive heart failure and pulmonary hypertension. This was treated with intravenous diuretics (Lasix) and you appeared to improve overnight. You were able to pass the 6- minute walk test therefore do not require oxygen at home. As advised by your dixonac operator recommend continuing on Lasix 40 mg daily as prescribed below. You should stop taking hydrochlorothiazide as this is also a diuretic. Given your low potassium levels and since Lasix was introduced which also reduces potassium in your blood: recommend supplementation with potassium chloride as prescribed below. Of note you were also diagnosed with severe coronary artery disease on your cardiac catheterization with plan to optimize medical therapy and referral for cardiothoracic surgery at [facility] for discussion of possible revascularization. Please follow up with your dixonac operator in addition (appointment to be arranged). Congestive Heart Failure: Discharge Instructions Congestive Heart Failure essentially means your heart is able to have a "traffic jam" of fluid that backs up into your lungs. Fluid in lungs then blocks up breathing space making you feel short of breath. In the hospital, our job is to get the fluid off so that you are able to breathe better, and then get you back on track with medication and lifestyle adjustments to keep the traffic jam from happening again. Salt (Sodium) The vast majority of people admitted to the hospital with fluid back up into the lungs get there because of too much salt in their diet. The way our kidneys work: when you take a small amount of sodium, your kidneys hold onto a small amount of water. When you take a large amount of sodium, your kidneys hold onto a large amount of water. When this happens, your blood vessels get flooded, your heart gets overfilled, and the fluid backs up into your lungs. Most people know to avoid the salt shaker, but sodium is in almost anything prepackaged/prepared, as a preservative or as a flavoring agent. Most of the people we take care of who are here with congestive heart failure caused by too much sodium do not use a salt shaker at all. Get into the habit of looking at food labels, so you can see how much sodium is in the foods you eat. The most important number to look at is how much sodium is in each serving. But also notice the size of a serving. [facility] will frequently make a serving size so tiny that it does not look like there is much sodium per serving, but a normal person might eat 3 or 4 servings of the food and take in a lot more sodium than they realized. Keep a "budget" of how much sodium you take in in each day. Most people stay out of trouble and stay out of the hospital as long as they stay "under budget". The majority of congestive heart failure patients do well if they take less than 2000 mg of sodium a day. Because our kidneys retain water based on how much sodium they are seeing in any given moment, it is also important to stay at less than about 500 mg in any given meal. This is because even if you stayed at less than 2000 mg of sodium, but ate it all at once, your kidneys would retain fluid at a rate as though you are taking in much more sodium than you actually are. Occasionally your doctor may specifically recommend restricting even further (such as less than 1500mg per day) so if you have been told to be even stricter with sodium, please follow that advice. -Following How You Are Doing (Wet Versus Dry) Because managing congestive heart failure is an ongoing process, it is very important to learn how to follow your signs and symptoms and track how you are doing at home. This will allow you to catch problems before they become a big deal. In general, as your health care team, we look at managing congestive heart failure chronically as a balance of being "wet" (flooded with fluid) versus being "dry" (dehydrated from treatment). Wet - signs of fluid retention that would warrant further evaluation: Check your weight daily. If your weight goes up by more than 2 pounds in 1 day, it is almost certainly fluid related. This should warrant further thought, and/or a call to your doctor Follow your breathingmost of the time, early on when fluid backs up into your lungs, you will first start to notice shortness of breath when walking, or when lying flat. If you notice either of these, this should warrant further thought, and/or a call to your doctor If you notice both an increase in weight and worsening breathing, that definitely warrants getting seen as soon as possible "Dry"while the goal of managing the disease is to keep you from getting "wet, the medications can sometimes cause a degree of dehydration. Most people with congestive heart failure need frequent lab work (basic metabolic panel). Generally when there has been a change in diuretic dosing (a change in the water pill) or any other major changes, lab work should be followed closely and more frequently afterwards. This is because lab work will frequently show early signs of dehydration before you start to feel bad. Frequent symptoms of being dehydrated include: feeling weak and lightheaded, having lower blood pressures, making less urine than usual, or having a very dry mouth. If you notice any of these signs/symptoms, and you are not due for lab work, it would be quite reasonable to call your doctor to see if lab work or a visit could be arranged. Heart Failure Management Checklist: Limit Salt (Sodium) Intake to 2000mg (2g) per day and 500mg (0.5g) per meal Check weight daily (in same clothes, without shoes) every morning Use the provided chart to enter your weight and salt intake for the day Are you too wet? If you gained 2lb or more - make sure to take your water pill If your breathing is not good (you are more short of breath than usual) call your doctor regardless of weight change If you gained 2lb or more and you are short of breath, see your doctor or come to the emergency room Are you too dry? If you feel weak or lightheaded, have lower blood pressures, make less urine than usual, or have a very dry mouth. Call your doctor Pending Studies at Discharge: No Stand-Alone Forms: My [facility] Medications and DC Order Prescriptions: New furosemide [Lasix] 40 mg tablet 40 mg PO DAILY Qty: 30 RF: 5 potassium chloride 20 mEq tablet extended release 20 meq PO DAILY Qty: 30 RF: 0 Continued montelukast 10 mg tablet 10 mg PO DAILY Qty: 30 RF: 5 losartan 100 mg tablet 100 mg PO DAILY Qty: 90 RF: 0 thyroid (pork) [[place] Thyroid] 90 mg tablet 90 mg PO DAILY Qty: 30 RF: 2 metoprolol succinate 25 mg tablet extended release 24 hr 25 mg PO DAILY Qty: 90 RF: 3 atorvastatin 20 mg tablet 20 mg PO DAILY Qty: 90 RF: 3 aspirin 81 mg tablet 81 mg PO DAILY RF: 0 (DME) Contour Next Test Strips strip See Dose Instructions .ROUTE .MEDSUPPLY Qty: 10 RF: 0 Centrum Silver 0.4-300-250 mg-mcg-mcg tablet 1 tab PO DAILY RF: 0 ipratropium-albuterol 0.5 mg-3 mg(2.5 mg base)/3 mL solution for nebulization 3 ml inhalation Q4H PRN (Reason: shortness of breath or wheezing) Qty: 2 RF: 0 ketorolac 0.4 % drops 1 drops OP .COMPLEX RF: 0 PreserVision AREDS 14,320-226-200 bclg-rd-eyfm capsule 1 cap PO DAILY RF: 0 omeprazole magnesium 20 mg tablet,delayed release (DR/EC) 20 mg PO DAILY RF: 0 Saccharomyces boulardii 250 mg capsule 250 mg PO DAILY RF: 0 sertraline 100 mg tablet 100 mg PO DAILY Qty: 30 RF: 0 timolol maleate 0.25 % drops 1 drops OP BID RF: 0 albuterol sulfate 90 mcg/actuation HFA aerosol inhaler 2 puffs inhalation Q4H PRN (Reason: shortness of breath or wheezing) Qty: 1 RF: 0 calcium-vitamin D3-vitamin K 500-500-40 mg-unit-mcg tablet,chewable 1 tab PO DAILY RF: 0 cholecalciferol (vitamin D3) 1,000 unit capsule 1,000 units PO DAILY Qty: 1 RF: 0 leflunomide 10 mg tablet 10 mg PO DAILY Qty: 90 RF: 3 triamcinolone acetonide 0.1 % cream 1 appln TOP BID Qty: 15 RF: 1 thyroid (pork) [[place] Thyroid] 15 mg tablet 15 mg PO DAILY Qty: 30 RF: 2 (DME) Contour Next Test Strips strip See Dose Instructions .ROUTE .MEDSUPPLY Qty: 10 RF: 0 (DME) BD SafetyGlide Insulin Syringe 0.5 mL 31 gauge x 15/64" syringe See Dose Instructions .ROUTE .MEDSUPPLY Qty: 100 RF: 0 glucagon HCl 1 mg recon soln 1 mg IM .COMPLEX RF: 0 insulin lispro [Humalog U-100 Insulin] 100 unit/mL solution 50 units SQ .COMPLEX Qty: 3 RF: 2 Discontinued hydrochlorothiazide 50 mg tablet 50 mg PO DAILY Qty: 30 RF: 0 Discharge Orders: Discharge Order (Routine); Ordered 05/31/19 Ordered By: Silver Harris Admission Data Admit Date/Time: 05/30/19 17:51 Attending Provider: Silver Harris Admit Provider: Parmjit Sandoval Primary Care Provider: Deandre Cross Other Providers: Parmjit Sandoval Other Interventions: Discharge Summary Assessment (RN) Last Done: 05/31/19 15:57 DC Date/Time DO NOT enter until pt leaves facility: 05/31/19 17:18
== END 2019-05-31 17:18 | disposition home or self-care (01) ==
LOC: CC 09:47 → 2S 09:47 → SUATTDRO 17:51